=== PATIENT | female | born 1975 | race Caucasian/White ===

== ENCOUNTER 2017-02-04 12:14 | Emergency (ER) | payer MEDICARE, MEDICAID ==
[2017-02-04 12:15] VITALS: BP 118/90; PULSE 88; RESP 16; TEMP 98.6; O2SAT 95
[2017-02-04] MEDS ORDERED: oxygen (12:27)
[2017-02-04] MEDS ORDERED: ADVA500A INH (12:28)
--- NOTE | 2017-02-04 12:36 | PD ---
HPI Chief Complaint: Respiratory Distress Time Seen by Provider: 12:21 Travel History International Travel<30 days: No Contact w/Intl Traveler<30days: No Traveled to known affect area: No History of Present Illness HPI 41-year-old noncompliant female with a history of oxygen-dependent COPD complaining of shortness of breath for 1 week. Patient states that she has been in [place] for 2 months from [place] and did not bring her oxygen. Also states she did not bring her medications. Patient states that she has felt feverish. Patient denies chest pain, abdominal pain, back pain. States that she has had a productive cough with clear to yellow sputum. Patient denies recent travel, blood disorders, surgeries, or fractures. Upon further questioning patient states that she has been using her inhalers but she is on without. Patient does not have a primary care physician in the area so she is unable follow-up with them. PFSH Past Medical History COPD: Yes Medical other: Yes (lupus, ms) Tetanus Vaccination: < 5 Years ?: Not Past Surgical History Cholecystectomy: Yes Genitourinary Surgery: Yes (bladder mesh) Hysterectomy: Yes Social History Alcohol Use: No Tobacco Use: Yes Substance Use: No Allergies-Medications (Allergen,Severity, Reaction): Coded Allergies: amoxicillin (Verified Allergy, Unknown, 02/04/17) sulfamethoxazole (Verified Allergy, Unknown, 02/04/17) trimethoprim (Verified Allergy, Unknown, 02/04/17) Reported Meds & Prescriptions Reported Meds & Active Scripts Active Azithromycin 250 Mg Tab 250 Mg PO DIRECTED Take 2 tabs (500 mg) on day 1 then 1 tab daily x 4 days. Atrovent HFA 12.9 GM Inh (Ipratropium [place]) 17 Mcg/Actuation Aer 2 Puff INH Q6HR PRN Ventolin Hfa 18 GM Inh (Albuterol Sulfate) 90 Mcg/Act Aer 2 Puff INH Q4-6H PRN Prednisone 10 Mg Tab 10 Mg PO DAILY 10 Days Reported Advair Diskus Inh (Fluticasone-Salmeterol Inh) 500-50 Mcg/Blist Aer 1 Puff INH BID Rinse mouth after use. [oxygen] 3 24X7 Review of Systems Except as stated in HPI: all other systems reviewed are Neg Physical Exam Narrative GENERAL: Well-nourished, well-developed patient. SKIN: Focused skin assessment warm/dry. HEAD: Normocephalic. EYES: No scleral icterus. No injection or drainage. NECK: Supple, trachea midline. No JVD or lymphadenopathy. CARDIOVASCULAR: Regular rate and rhythm without murmurs, gallops, or rubs. RESPIRATORY: Breath sounds diminished bilateral lower lobes. Diffuse wheezing. No rales or rhonchi. GASTROINTESTINAL: Abdomen soft, non-tender, nondistended. MUSCULOSKELETAL: No cyanosis, or edema. BACK: Nontender without obvious deformity. No CVA tenderness. Data Data Last Documented VS Vital Signs Date Time Temp Pulse Resp B/P (MAP) Pulse Ox O2 Delivery O2 Flow Rate FiO2 02/04/17 13:52 96 02/04/17 13:15 Room Air 02/04/17 12:15 98.6 88 16 Orders Orders Chest, Single Ap (02/04/17 12:33) Methylprednisolone So Succ Inj (Solumedr (02/04/17 12:45) Albuterol-Ipratropium Neb (Duoneb Neb) (02/04/17 12:45) Ed Discharge Order (02/04/17 13:44) [facility] Medical Decision Making Medical Screen Exam Complete: Yes Emergency Medical Condition: Yes Differential Diagnosis COPD exacerbation, medication noncompliance, pneumonia, asthma Narrative Course 41-year-old noncompliant female with a history of oxygen-dependent COPD complaining of shortness of breath for 1 week. Patient states that she has been in [place] for 2 months from [place] and did not bring her oxygen. Also states she did not bring her medications. Patient states that she has felt feverish. Patient denies chest pain, abdominal pain, back pain. States that she has had a productive cough with clear to yellow sputum. Patient denies recent travel, blood disorders, surgeries, or fractures. Upon further questioning patient states that she has been using her inhalers but she is almost out. Patient does not have a primary care physician in the area so she is unable follow-up with them until February. Vital signs stable. No hypoxia. Pulse ox remained above 96% on room air. Heart rate 88. Physical exam- diffuse wheezing, diminished breath sounds bilateral lower lungs. Chest x-ray- no acute process Solu-Medrol and DuoNeb administered in the emergency department. Patient feels significantly better and would like to go home. Patient will be discharged with prednisone, azithromycin, and inhalers for outpatient use. Advised patient to follow up primary care physician within 2-3 days. Return to the emergency department for worsening or persistent symptoms Diagnosis Primary Impression: COPD exacerbation Additional Impression: Noncompliance with medications Referrals: [facility] Additional Instructions: Take all medications as prescribed. Follow up with [facility] or your primary care physician within 2-3 days. If her symptoms persist or worsen return to the emergency department. Scripts Azithromycin (Azithromycin) 250 Mg Tab 250 MG PO DIRECTED for Infection, #6 TAB 0 Refills Take 2 tabs (500 mg) on day 1 then 1 tab daily x 4 days. Prov: Luis Alberto Montoya MD 02/04/17 Ipratropium HFA 12.9 GM Inh (Atrovent HFA 12.9 GM Inh) 17 Mcg/Actuation Aer 2 PUFF INH Q6HR Y for SHORTNESS OF BREATH, #1 INHALER 0 Refills Prov: Luis Alberto Montoya MD 02/04/17 Albuterol 18 GM Inh (Ventolin Hfa 18 GM Inh) 90 Mcg/Act Aer 2 PUFF INH Q4-6H Y for SHORTNESS OF BREATH, #1 INHALER 0 Refills Prov: Luis Alberto Montoya MD 02/04/17 Prednisone (Prednisone) 10 Mg Tab 10 MG PO DAILY for 10 Days, #10 TAB 0 Refills Prov: Luis Alberto Montoya MD 02/04/17 Disposition: 01 DISCHARGE HOME Condition: Stable Jacquelyn Mirza Feb 04, 2017 12:36
[2017-02-04] MEDS ORDERED: RESP: ALBUTEROL 2.5 MG/IPRATROPIUM 0.5 MG NEB (SCH) NEB ONE (12:45)
[2017-02-04] MEDS ORDERED: methylPREDNISolone SOD SUCC 125 MG/2 ML VIAL IV PUSH ONE (12:45)
--- NOTE | 2017-02-04 13:27 | RADRPT ---
EXAM DATE/TIME: 02/04/2017 13:10 [facility] COMPARISON: No previous studies available for comparison. INDICATIONS : Cough MEDICAL HISTORY : None. SURGICAL HISTORY : None. ENCOUNTER: Initial ACUITY: 1 day PAIN SCORE: 0/10 LOCATION: Bilateral chest FINDINGS: A single view of the chest demonstrates the lungs to be symmetrically aerated without evidence of mas s, infiltrate or effusion. The cardiomediastinal contours are unremarkable. Osseous structures are intact. CONCLUSION: 1. No acute cardiopulmonary disease. Les Ewing MD on February 04, 2017 at 13:23 Board Certified Radiologist. This report was verified electronically.
[2017-02-04] MEDS ORDERED: PRED10 PO (13:34)
[2017-02-04] MEDS ORDERED: VENTAER INH (13:40)
[2017-02-04] MEDS ORDERED: IPRA17I INH (13:43)
[2017-02-04] MEDS ORDERED: AZIT250T3 PO (13:44)
== END 2017-02-04 13:52 | disposition home or self-care (01) ==
LOC: NEPD 12:14
DX: J44.1 Chronic obstructive pulmonary disease with (acute) exacerbation (principal); Z72.0 Tobacco use; Z91.14 Patient's other noncompliance with medication regimen; Z91.19 Patient's noncompliance with other medical treatment and regimen; Z99.81 Dependence on supplemental oxygen
CPT/HCPCS: 71010; 94664; 96374; 99284; J2930